=== PATIENT | female | born 1990 | race Caucasian/White ===

== ENCOUNTER → 2021-05-25 | Outpatient (CLI) | payer OTHER | LOC: KOH-I 15:05 | DX: M75.42 Impingement syndrome of left shoulder (principal) | CPT/HCPCS: 73221 ==

== ENCOUNTER → 2021-11-07 | Outpatient (CLI) | payer OTHER ==
[~2021-11-07] MED LIST: COLACE 100MG C100 MG PO; HYDROCODON-ACE1 EAC6 PO; IBUPROFEN600 MG PO
[2021-11-07 11:36] LABS: HEMOGLOBIN 13.9 gm/dl (12.3-15.3); RED BLOOD COUNT 4.55 M/UL (4.00-5.10); WHITE BLOOD COUNT 9.7 K/UL (4.5-11.0)
== END ==
LOC: OPSV2 10:00
PROVIDERS: Obstetrics & Gynecology
DX: Z01.812 Encounter for preprocedural laboratory examination (principal); Z88.8 Allergy status to other drugs, medicaments and biological substances; R10.2 Pelvic and perineal pain
CPT/HCPCS: 81001; 85025

== ENCOUNTER 2021-11-09 08:08 | Inpatient (IN) | payer OTHER ==
[~2021-11-09] VITALS: Ht 170.2 cm; Wt 76.2 kg
[2021-11-09] MEDS ORDERED: IBUPROFEN600 MG PO (11:52)
[2021-11-09] MEDS ORDERED: COLACE 100MG C100 MG PO (11:52)
[2021-11-09] MEDS ORDERED: HYDROCODON-ACE1 EAC6 PO (11:52)
[2021-11-10 06:09] LABS: HEMOGLOBIN 12.1 gm/dl (12.3-15.3)
[2021-11-12] MEDS ORDERED: HYDROCODON-ACE1 EAC6 PO (10:22)
== END 2021-11-12 11:20 | disposition home or self-care (01) | DRG 743 ==
LOC: OR 08:08 → MED SURG 4 08:09 → OR 08:48 → MED SURG 4 13:12
PROVIDERS: ADMIT Obstetrics & Gynecology
PROC: 0UT90ZZ Resection of Uterus, Open Approach (ICD-10-PCS; principal; 2021-11-09)
PROC: 0UT20ZZ Resection of Bilateral Ovaries, Open Approach (ICD-10-PCS; 2021-11-09)
PROC: 0UT70ZZ Resection of Bilateral Fallopian Tubes, Open Approach (ICD-10-PCS; 2021-11-09)
DX: N80.0 Endometriosis of uterus (principal); J45.909 Unspecified asthma, uncomplicated; Z20.822 Contact with and (suspected) exposure to COVID-19; N73.6 Female pelvic peritoneal adhesions (postinfective); N83.209 Unspecified ovarian cyst, unspecified side; G89.29 Other chronic pain; D64.9 Anemia, unspecified; G43.909 Migraine, unspecified, not intractable, without status migrainosus; N83.8 Other noninflammatory disorders of ovary, fallopian tube and broad ligament; Z97.5 Presence of (intrauterine) contraceptive device; Z88.8 Allergy status to other drugs, medicaments and biological substances; Z98.891 History of uterine scar from previous surgery
CPT/HCPCS: 84703; 85014; 85018; 97110; 97161; J0690; J1100; J1170; J1885; J2001; J2250; J2270; J2405; J2550; J2704; J2710; J2795; J3010; J7120

== ENCOUNTER 2021-11-09 10:15 | Observation (INO) | payer OTHER ==
[~2021-11-09] VITALS: Ht 170.2 cm; Wt 70.3 kg
[2021-11-09] MEDS ORDERED: IBUPROFEN600 MG PO (11:52)
[2021-11-09] MEDS ORDERED: HYDROCODON-ACE1 EAC6 PO (11:52)
[2021-11-09] MEDS ORDERED: COLACE 100MG C100 MG PO (11:52)
[2021-11-12] MEDS ORDERED: HYDROCODON-ACE1 EAC6 PO (10:22)
[2021-11-14 15:53] LABS: HEMOGLOBIN 12.4 gm/dl (12.3-15.3); RED BLOOD COUNT 4.03 M/UL (4.00-5.10); WHITE BLOOD COUNT 15.4 K/UL (4.5-11.0)
[2021-11-14 16:17] LABS: BUN/CREATININE RATIO 20 (0-10)
[2021-11-15 08:10] LABS: HEMOGLOBIN 11.1 gm/dl (12.3-15.3); RED BLOOD COUNT 3.66 M/UL (4.00-5.10)
[2021-11-15 08:11] LABS: WHITE BLOOD COUNT 10.1 K/UL (4.5-11.0)
[2021-11-15 08:37] LABS: BUN/CREATININE RATIO 15 (0-10)
[2021-11-16 12:11] LABS: HBSAG SCREEN Negative (Negative); HEP A AB, IGM Negative (Negative); HEP B CORE AB, IGM Negative (Negative); HEP C VIRUS AB <0.1 (0.0-0.9)
== END 2021-11-15 16:13 | disposition home or self-care (01) ==
LOC: OB 11-14 14:45
PROVIDERS: ADMIT Obstetrics & Gynecology
DX: R50.82 Postprocedural fever (principal); R30.0 Dysuria; S74.12XA Injury of femoral nerve at hip and thigh level, left leg, initial encounter; S74.11XA Injury of femoral nerve at hip and thigh level, right leg, initial encounter; G89.18 Other acute postprocedural pain; Z20.822 Contact with and (suspected) exposure to COVID-19; Z90.710 Acquired absence of both cervix and uterus; Z90.722 Acquired absence of ovaries, bilateral; Z90.79 Acquired absence of other genital organ(s); Y83.8 Other surgical procedures as the cause of abnormal reaction of the patient, or of later complication, without mention of misadventure at the time of the procedure
CPT/HCPCS: 36415; 71046; 80053; 80074; 81001; 85025; 96374; 96375; G0378; G0379; J0780; J1100; J1956; J7120; Q9967; U0002